=== PATIENT | female | born 1950 | race Caucasian/White ===

== ENCOUNTER → 2019-03-22 07:12 | Outpatient (CLI) | payer OTHER | END | disposition home or self-care (01) | LOC: LAB 07:12 | DX: K80.80 Other cholelithiasis without obstruction (principal) ==

== ENCOUNTER 2019-03-27 12:36 | Outpatient (CLI) | payer OTHER | END 2019-03-27 13:24 | disposition home or self-care (01) | LOC: LAB 12:36 | DX: D68.0 Von Willebrand disease (principal) ==

== ENCOUNTER 2019-03-29 08:07 | Outpatient (CLI) | payer OTHER | END 2019-03-29 08:11 | disposition home or self-care (01) | LOC: LAB 08:07 | DX: D68.8 Other specified coagulation defects (principal) ==

== ENCOUNTER 2019-03-31 07:16 | Outpatient (CLI) | payer OTHER | END 2019-03-31 07:18 | disposition home or self-care (01) | LOC: MRI 07:16 | DX: K80.80 Other cholelithiasis without obstruction (principal) | CPT/HCPCS: 74182; A9579; 74183 ==